=== PATIENT | male | born 1965 | race Caucasian/White ===

== ENCOUNTER 2017-05-09 21:05 | Inpatient (IN) | payer OTHER, MEDICAID ==
[~2017-05-09] VITALS: Ht 160 cm; Wt 63.5 kg
[~2017-05-09 21:05] MED LIST: AMLO5TAB4 PO; librium; prandin; thiamine
[2017-05-10] VITALS (13 sets, daily range): BP systolic 107–149; BP diastolic 59–74
[2017-05-10 00:48] LABS: BASOPHILS % 0.5 % (0.0-2.0); EOSINOPHILS % 1.7 % (0.0-5.0); HEMATOCRIT. 35.1 % (42.0-52.0); HEMOGLOBIN. 11.5 g/dL (14.0-18.0); LYMPHOCYTES % 10.7 % (20.0-50.0); MEAN CORPUSCULAR HEMOGLOBIN 30.9 pg (28.0-32.0); MEAN CORPUSCULAR VOLUME 94.6 fL (80.0-94.0); MEAN PLATELET VOLUME 7.4 fl (7.4-10.4); MONOCYTES % 7.7 % (2.0-8.0); NEUTROPHILS % 79.4 % (40.0-76.0); PLATELET 323 x1000/uL (130-400); RED BLOOD CELL COUNT 3.71 mill/uL (4.7-6.1); RED CELL DISTRIBUTION WIDTH 14.2 % (11.6-14.6)
[2017-05-10 00:57] LABS: PROTHROMBIN TIME 10.7 sec (9.4-11.6)
[2017-05-10 01:08] LABS: CARBON DIOXIDE 31 mEq/L (21-32); CHLORIDE 96 mEq/L (98-107)
[2017-05-10] MEDS ORDERED: DILTIAZEM HCL 5MG/ML 5ML VIAL IV SCH (02:45)
[2017-05-10] MEDS ORDERED: METOPROLOL TARTRATE 5MG/5ML VIAL IV SCH (03:00)
[2017-05-10] MEDS ORDERED: CLOPIDOGREL 75MG TABLET PO SCH (03:00)
[2017-05-10] MEDS ORDERED: ENOXAPARIN 60MG/0.6ML SYR SUBCUT SCH (03:00)
[2017-05-10] MEDS ORDERED: THIAMINE 100 MG SCH (11:00)
[2017-05-10] MEDS: REPAGLINIDE 0.5MG TABLET PO SCH ×2 (11:50→16:50)
[2017-05-10 13:31] LABS: CREATINE KINASE MB FRACTION 15.1 ng/mL (0.5-3.6); T4 FREE 1.13 ng/dL (0.76-1.46)
[2017-05-10 13:51] LABS: TROPONIN I 7.5 ng/mL (0.00-0.04)
[2017-05-10] MEDS: THIAMINE HCL 100MG TABLET PO SCH (14:17)
[2017-05-10] MEDS: AMLODIPINE 5MG TABLET PO SCH (14:17)
[2017-05-10] MEDS ORDERED: LIDOCAINE HCL 1% 20ML VIAL (Pyxis) INJ ONE (15:51)
[2017-05-10] MEDS ORDERED: IODIXANOL 320MG/ML 100 ML BOTTLE IV ONE (15:52)
[2017-05-10] MEDS ORDERED: FENTANYL CITRATE/PF 50MCG/ML 2ML VIAL ONE (15:52)
[2017-05-10] MEDS ORDERED: MIDAZOLAM HCL 2 MG/2 ML VIAL ONE (15:52)
[2017-05-10] MEDS ORDERED: HYDRALAZINE 20MG/ML VIAL ONE (16:01)
[2017-05-10] MEDS ORDERED: ATROPINE SULFATE 1MG/10ML SYR IV PRN (16:15)
[2017-05-10] MEDS ORDERED: ACETAMINOPHEN 325MG TABLET PO PRN (16:15)
[2017-05-10] MEDS ORDERED: PRANDIN SCH (17:00)
[2017-05-10 19:54] LABS: CREATINE KINASE MB FRACTION 11.8 ng/mL (0.5-3.6)
[2017-05-10 20:04] LABS: TROPONIN I 6.4 ng/mL (0.00-0.04)
[2017-05-10] MEDS ORDERED: ATORVASTATIN CALCIUM 20MG TABLET PO SCH (21:00)
[2017-05-10] MEDS: CARVEDILOL 3.125 MG TABLET PO SCH (21:26)
[2017-05-10 22:35] LABS: *AMPHETAMINES SCREEN URINE NEGATIVE (NEGATIVE); *BARBITURATES SCREEN URINE NEGATIVE (NEGATIVE); *BENZODIAZEPINES SCREEN URINE NEGATIVE (NEGATIVE); *COCAINE SCREEN URINE NEGATIVE (NEGATIVE); CANNABINOID URINE SCREEN NEGATIVE (NEGATIVE); METHADONE URINE SCREEN NEGATIVE (NEGATIVE); OPIATES URINE SCREEN NEGATIVE (NEGATIVE); PHENCYCLIDINE URINE SCREEN NEGATIVE (NEGATIVE)
[2017-05-11] VITALS (10 sets, daily range): BP systolic 137–174; BP diastolic 58–79
[2017-05-11 00:57] LABS: CREATINE KINASE MB FRACTION 8.9 ng/mL (0.5-3.6)
[2017-05-11 01:02] LABS: TROPONIN I 6.1 ng/mL (0.00-0.04)
[2017-05-11 06:23] LABS: BASOPHILS % 0.8 % (0.0-2.0); HEMATOCRIT. 33.7 % (42.0-52.0); HEMOGLOBIN. 11.3 g/dL (14.0-18.0); MEAN CORPUSCULAR HEMOGLOBIN 32.2 pg (28.0-32.0); MEAN CORPUSCULAR VOLUME 95.9 fL (80.0-94.0); MEAN PLATELET VOLUME 7.9 fl (7.4-10.4); MONOCYTES % 9.6 % (2.0-8.0); NEUTROPHILS % 65.6 % (40.0-76.0); PLATELET 299 x1000/uL (130-400); RED BLOOD CELL COUNT 3.51 mill/uL (4.7-6.1)
[2017-05-11] MEDS: REPAGLINIDE 0.5MG TABLET PO SCH ×3 (06:44→16:38)
[2017-05-11 07:11] LABS: PHOSPHORUS 6.9 mg/dL (2.5-4.9)
[2017-05-11] MEDS: AMLODIPINE 5MG TABLET PO SCH (08:09)
[2017-05-11] MEDS: THIAMINE HCL 100MG TABLET PO SCH (08:09)
[2017-05-11] MEDS: CARVEDILOL 3.125 MG TABLET PO SCH (08:09)
[2017-05-11] MEDS ORDERED: PREGABALIN 50 MG CAPSULE PO SCH (09:00)
[2017-05-11] MEDS ORDERED: ASPIRIN 81MG TABLET PO SCH (09:00)
[2017-05-11] MEDS ORDERED: CLOPIDOGREL 75MG TABLET PO SCH (09:00)
== END 2017-05-11 17:42 | disposition home or self-care (01) | DRG 192 ==
LOC: ER 21:05 → 3WST 05-10 02:36 → EDBEDREQTM 05-10 03:04 → EDBEDREQSVC 05-10 03:04 → ENRESERV 05-10 03:12
PROVIDERS: ADMIT Internal Medicine; ATTEND Internal Medicine
PROC: 4A023N7 Measurement of Cardiac Sampling and Pressure, Left Heart, Percutaneous Approach (ICD-10-PCS; principal; 2017-05-10)
PROC: B2111ZZ Fluoroscopy of Multiple Coronary Arteries using Low Osmolar Contrast (ICD-10-PCS; 2017-05-10)
PROC: B2151ZZ Fluoroscopy of Left Heart using Low Osmolar Contrast (ICD-10-PCS; 2017-05-10)
PROC: 5A1D70Z Performance of Urinary Filtration, Intermittent, Less than 6 Hours Per Day (ICD-10-PCS; 2017-05-11)
DX: I13.2 Hypertensive heart and chronic kidney disease with heart failure and with stage 5 chronic kidney disease, or end stage renal disease (principal); E43 Unspecified severe protein-calorie malnutrition; N18.6 End stage renal disease; R65.10 Systemic inflammatory response syndrome (SIRS) of non-infectious origin without acute organ dysfunction; E11.22 Type 2 diabetes mellitus with diabetic chronic kidney disease; E11.40 Type 2 diabetes mellitus with diabetic neuropathy, unspecified; I50.20 Unspecified systolic (congestive) heart failure; R07.9 Chest pain, unspecified; I47.1 Supraventricular tachycardia; E78.00 Pure hypercholesterolemia, unspecified; E78.5 Hyperlipidemia, unspecified; E87.6 Hypokalemia; J06.9 Acute upper respiratory infection, unspecified; E11.65 Type 2 diabetes mellitus with hyperglycemia; Z99.2 Dependence on renal dialysis; Z72.0 Tobacco use; Z79.899 Other long term (current) drug therapy; Z68.24 Body mass index [BMI] 24.0-24.9, adult
CPT/HCPCS: 36415; 71010; 80048; 80053; 80061; 80305; 82550; 82553; 82962; 83036; 83690; 83735; 83880; 84100; 84439; 84443; 84484; 85025; 85379; 85610; 85730; 87040; 93005; 93306; 93458; 93970; 96372; 96374; 99291; C1760; C1769; C1887; C1893; J0360; J1644; J1650; J2250; J3010; J3490; Q9967

== ENCOUNTER 2022-08-07 19:39 | Emergency (ER) | payer MEDICAID ==
[~2022-08-07] VITALS: Ht 165.1 cm; Wt 64.0 kg
[2022-08-07 21:54] VITALS: BP 148/64
== END 2022-08-07 21:55 | disposition home or self-care (01) ==
LOC: ER 19:47
DX: T82.838A Hemorrhage due to vascular prosthetic devices, implants and grafts, initial encounter (principal); I12.0 Hypertensive chronic kidney disease with stage 5 chronic kidney disease or end stage renal disease; Y92.530 Ambulatory surgery center as the place of occurrence of the external cause; Y82.8 Other medical devices associated with adverse incidents; E11.22 Type 2 diabetes mellitus with diabetic chronic kidney disease; N18.6 End stage renal disease; Z99.2 Dependence on renal dialysis; Z79.899 Other long term (current) drug therapy
CPT/HCPCS: 99283; Z7610

== ENCOUNTER 2022-08-07 23:06 | Emergency (ER) | payer MEDICAID ==
[~2022-08-07] VITALS: Ht 167.6 cm; Wt 64.0 kg
[2022-08-08 02:45] VITALS: BP 142/78
== END 2022-08-08 02:48 | disposition home or self-care (01) ==
LOC: ER 23:17
DX: T82.838A Hemorrhage due to vascular prosthetic devices, implants and grafts, initial encounter (principal); E11.22 Type 2 diabetes mellitus with diabetic chronic kidney disease; I12.0 Hypertensive chronic kidney disease with stage 5 chronic kidney disease or end stage renal disease; N18.6 End stage renal disease; Z99.2 Dependence on renal dialysis; Y84.1 Kidney dialysis as the cause of abnormal reaction of the patient, or of later complication, without mention of misadventure at the time of the procedure; Y92.018 Other place in single-family (private) house as the place of occurrence of the external cause
CPT/HCPCS: 99281